=== PATIENT | female | born 1960 | race Caucasian/White ===

== ENCOUNTER 2017-05-16 18:33 | Emergency (ER) | payer OTHER ==
[~2017-05-16 18:33] MED LIST: ALBU8I INH; DEXI60CA3 PO; GABA300C3 PO; HYDR10SO PO; INSU-118 SQ; INSU1.2I SQ; K 10100T PO; LEVO100T4 PO; MAXZ PO; MELO15TA2 PO; NOVOLOGSS SQ; PROZ20CA11 PO; ROPI1TAB PO; TIZA4CAP PO; VICT18IN SQ
[2017-05-16 18:47] VITALS: BP 122/66; PULSE 92; RESP 20; TEMP 98.3; O2SAT 94
--- NOTE | 2017-05-16 18:49 | PD ---
Physical Exam Time Seen by Provider: 18:47 Narrative Pt presents for evaluation of L knee pain. "Wrenched" it two days ago and was ambulating with a walker today when she tripped and fell, landing on the left knee. Was unable to stand following the injury. 05/24 pain. Hurts with any movement. Hx. chronic pain, htn, diabetes, COPD, CAD with MIx3 Data Data Last Documented VS Vital Signs Date Time Temp Pulse Resp B/P (MAP) Pulse Ox O2 Delivery O2 Flow Rate FiO2 05/16/17 18:47 98.3 92 20 122/66 (84) 94 Room Air Orders Orders Knee, Complete (4vws) (05/16/17 ) MDM Medical Record Reviewed: Yes Supervised Visit with ANNABELLA: No Disposition: 07 AGAINST MEDICAL ADVICE Condition: Stable Magaly Sue May 16, 2017 18:49
--- NOTE | 2017-05-16 20:12 | RADRPT ---
EXAM DATE/TIME: 05/16/2017 19:01 [facility] COMPARISON: KNEE LEFT COMPLETE (4VWS), April 10, 2016, 11:27. INDICATIONS : Left knee pain after fall. MEDICAL HISTORY : Multiple sclerosis. SURGICAL HISTORY : None. ENCOUNTER: Initial ACUITY: 1 day PAIN SCORE: 10/10 LOCATION: Left knee. FINDINGS: No acute fracture is seen. The knee joint is normally aligned. There is linear calcification adjacent to the proximal aspect of the medial femoral condyle consistent with Eda-Stieda from prior me dial collateral ligament injury. There is a moderate joint effusion. There is chronic hypertrophic ch yenny of the posterior aspect of the patella. CONCLUSION: Moderate joint effusion. Misael Cervantes MD on May 16, 2017 at 20:09 Board Certified Radiologist. This report was verified electronically.
== END 2017-05-16 20:25 | disposition left against medical advice (07) ==
LOC: NED 18:33
DX: M25.562 Pain in left knee (principal); W01.0XXA Fall on same level from slipping, tripping and stumbling without subsequent striking against object, initial encounter; Y93.01 Activity, walking, marching and hiking; I25.10 Atherosclerotic heart disease of native coronary artery without angina pectoris; I25.2 Old myocardial infarction; I10 Essential (primary) hypertension; E11.9 Type 2 diabetes mellitus without complications; J44.9 Chronic obstructive pulmonary disease, unspecified
CPT/HCPCS: 73564; 99281

== ENCOUNTER 2017-06-13 10:48 | Emergency (ER) | payer OTHER ==
[~2017-06-13] VITALS: Ht 172.7 cm; Wt 90.0 kg
[2017-06-13 10:50] VITALS: BP 152/73; PULSE 90; RESP 16; TEMP 97.8; O2SAT 99
[2017-06-13] MEDS ORDERED: CYCL5TAB PO (11:12)
[2017-06-13] MEDS ORDERED: IBUP-232 PO (11:12)
[2017-06-13] MEDS ORDERED: IBUPROFEN 600 MG TAB PO ONE (11:15)
[2017-06-13] MEDS ORDERED: CYCLOBENZAPRINE HCL 10 MG TAB PO ONE (11:15)
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
== END 2017-06-13 12:05 | disposition home or self-care (01) ==
LOC: NEPD 10:48
DX: S16.1XXA Strain of muscle, fascia and tendon at neck level, initial encounter (principal); R51 Headache; M25.511 Pain in right shoulder; I69.954 Hemiplegia and hemiparesis following unspecified cerebrovascular disease affecting left non-dominant side; I48.91 Unspecified atrial fibrillation; J44.9 Chronic obstructive pulmonary disease, unspecified; E11.9 Type 2 diabetes mellitus without complications; E07.9 Disorder of thyroid, unspecified; V49.50XA Passenger injured in collision with unspecified motor vehicles in traffic accident, initial encounter
CPT/HCPCS: 99283

== ENCOUNTER 2017-10-02 16:43 | Inpatient (IN) | payer MEDICARE ==
[~2017-10-02] VITALS: Ht 170.2 cm; Wt 93.6 kg
[2017-10-02] VITALS (10 sets, daily range): BP systolic 103–148; BP diastolic 72–90; PULSE 70–78; RESP 18–20; TEMP 97.4–97.9; O2SAT 96–99
[~2017-10-02 16:43] MED LIST changes: +CYCL5TAB PO; +IBUP-232 PO
[2017-10-02] MEDS ORDERED: SODIUM CHLOR 0.9% 1000 ML INJ 1,000 ML IV ONE (16:47)
--- NOTE | 2017-10-02 17:06 | PD ---
HPI Chief Complaint: NEURO Time Seen by Provider: 16:47 Travel History International Travel<30 days: No Contact w/Intl Traveler<30days: No Traveled to known affect area: No History of Present Illness HPI Onset of left-sided weakness left facial droop and difficulty speaking since 11: 00.... Unknown as to why it took so many hours for the patient to arrive here in the ER however the patient arrived here around 5:00 or so which is approximately 6 hours after onset of symptoms. Per patient she was attempting to make T when she started to develop the symptoms around 11:00 in the morning, she was at home in the kitchen with her daddy IN living room... Patient has full recollection of everything however still cannot provide me with an explanation as to what took so long between onset of symptoms and calling 911 and arriving at the ER. Only thing she could explain to me is that the symptoms were not as badly at 11 in the morning. Allergies allegedly to IV contrast both for a CAT scan as well as MRI Past medical history of hypothyroidism previous CVA in 2001 NTA previous history of AL in 1987 previous history of atrial fibrillation unknown if she currently still has the history. Previous history of hypercholesterolemia hypertension COPD peptic ulcer disease hiatal hernia, diabetes PFSH Past Medical History Hx Anticoagulant Therapy: No Arthritis: Yes Asthma: Yes Autoimmune Disease: No Blood Disorders: No Heart Rhythm Problems: No Cancer: No Cardiac Catheterization: No Cardiovascular Problems: Yes (A-FIB) High Cholesterol: Yes Chemotherapy: No Chest Pain: Yes Congestive Heart Failure: No COPD: Yes Cerebrovascular Accident: Yes Diabetes: Yes Endocrine: Yes Gastrointestinal Disorders: Yes (had cholesectomy in August 2015 & hernia repair) Genitourinary: No Hiatal Hernia: Yes Hypertension: Yes Immune Disorder: No Implanted Vascular Access Dvce: No Musculoskeletal: Yes (arthritis) Neurologic: Yes (CVA 2001 & history of TIA) Psychiatric: No Reproductive: No Respiratory: Yes Myocardial Infarction: Yes () Sleep Apnea: No Thyroid Disease: Yes Ulcer: Yes Menopausal: Yes : 3 Para: 3 Past Surgical History Coronary Artery Bypass Graft: No Genitourinary Surgery: Yes (PYLONEPHRITIS CYST REMOVED ) Hysterectomy: No Pacemaker: No Tonsillectomy: Yes Other Surgery: Yes (CYST REMOVED IN LOWER SPINE AT AGE 12 AND 19) Social History Alcohol Use: No Tobacco Use: Yes Substance Use: No Allergies-Medications (Allergen,Severity, Reaction): Coded Allergies: Sulfa (Sulfonamide Antibiotics) (Unverified Allergy, Severe, 06/13/17) diatrizoate meglumine (Unverified Allergy, Severe, 06/13/17) gadobenic acid (Unverified Allergy, Severe, 06/13/17) gadodiamide (Unverified Allergy, Severe, 06/13/17) gadoteridol (Unverified Allergy, Severe, 06/13/17) hazelnut (Unverified Allergy, Severe, THROAT SWELLING, 06/13/17) iodixanol (Unverified Allergy, Severe, 06/13/17) iohexol (Unverified Allergy, Severe, 06/13/17) promethazine (Unverified Allergy, Mild, 06/13/17) PANIC ATTACKS Reported Meds & Prescriptions Reported Meds & Active Scripts Active Reported Lortab Liq (Hydrocodone-Acetaminophen Liq) 10-300 Mg/15 Ml Elix 10 Ml PO Q6H PRN Zoloft (Sertraline HCl) 100 Mg Tab 200 Mg PO DAILY Pravastatin 20 Mg Tab 20 Mg PO DAILY Ropinirole 1 Mg Tab 1 Mg PO ONCE Gabapentin 600 Mg Tab 600 Mg PO BID Victoza Inj (Liraglutide Inj) 18 Mg/3 Ml Pen 1.8 Mg SQ DAILY Toujeo Solostar Pen Inj (Insulin Glargine) 300 Unit/Ml Pen 24 Units SQ BID Potassium Chloride ER (Potassium Chloride) 20 Meq Tab 20 Meq PO BID Levothyroxine (Levothyroxine Sodium) 100 Mcg Tab 100 Mcg PO DAILY Review of Systems General / Constitutional: No: Fever Eyes: No: Visual changes HENT: No: Headaches Cardiovascular: No: Chest Pain or Discomfort Respiratory: No: Shortness of Breath Gastrointestinal: No: Abdominal Pain Genitourinary: No: Dysuria Musculoskeletal: No: Pain Skin: No Rash Neurologic: Positive: Focal Abnormalities Psychiatric: No: Depression Endocrine: No: Polydipsia Hematologic/Lymphatic: No: Easy Bruising Physical Exam Narrative GENERAL: SKIN: Warm and dry. HEAD: Atraumatic. Normocephalic. EYES: Pupils equal and round. No scleral icterus. No injection or drainage. ENT: No nasal bleeding or discharge. Mucous membranes pink and moist. NECK: Trachea midline. No JVD. CARDIOVASCULAR: Regular rate and rhythm. RESPIRATORY: No accessory muscle use. Clear to auscultation. Breath sounds equal bilaterally. GASTROINTESTINAL: Abdomen soft, non-tender, nondistended. Hepatic and splenic margins not palpable. MUSCULOSKELETAL: Extremities without clubbing, cyanosis, or edema. No obvious deformities. NEUROLOGICAL: Awake and alert. LEFT FACIAL DROOP, LEFT UE/LLE WEAKNESS 2/5, HOWEVER RIGHT SIDE IS 5/5 STRENGTH. SLURRED speech. PSYCHIATRIC: Appropriate mood and affect; insight and judgment normal. Data Data Last Documented VS Vital Signs Date Time Temp Pulse Resp B/P (MAP) Pulse Ox O2 Delivery O2 Flow Rate FiO2 10/02/17 18:18 83 18 98 Nasal Cannula 2.00 10/02/17 18:05 125/78 (94) 10/02/17 16:53 21 10/02/17 16:50 97.9 Orders Orders Diet Npo (10/02/17 Dinner) Activity Bed Rest (10/02/17 ) Electrocardiogram (10/02/17 ) I-Stat Profile (10/02/17 16:47) Prothrombin Time / Inr (Pt) (10/02/17 16:47) Act Partial Throm Time (Ptt) (10/02/17 16:47) Complete Blood Count With Diff (10/02/17 16:47) Fibrinogen (10/02/17 16:47) Creatine Kinase (Cpk) (10/02/17 16:47) Troponin I (10/02/17 16:47) Ua Includes Microscopic (10/02/17 16:47) Drug Screen, Random Urine (10/02/17 16:47) Type And Screen (10/02/17 16:47) Ct Brain W/O Iv Contrast(Rout) (10/02/17 ) Chest, Single Ap (10/02/17 ) Consult Neurology (10/02/17 ) Blood Glucose (10/02/17 16:47) Ecg Monitoring (10/02/17 16:47) Neuro Checks Q2HX12,Q4H (10/02/17 16:47) Nursing Bedside Swallow Assess .ONCE (10/02/17 16:47) Iv Access Insert/Monitor (10/02/17 16:47) NPO (10/02/17 16:47) Oximetry (10/02/17 16:47) Resp Oxygen Nc Stroke (10/02/17 ) Sodium Chlor 0.9% 1000 Ml Inj (Ns 1000 M (10/02/17 16:47) Cath For Specimen (10/02/17 16:47) (Hub Use Only)Inp Phy Cons/Ref (10/02/17 17:01) Morphine Inj (Morphine Inj) (10/02/17 18:00) Admit Order (Ed Use Only) (10/02/17 18:21) Admit To Inpatient (10/02/17 ) Nih Stroke Scale - Nihss .On admission and discharge (10/02/17 18:19) Neuro Checks Q4H (10/02/17 18:19) Ot Request For Service (10/02/17:) Consult Pt Eval & Treat (10/02/17:) Speech Therapy Consult-Eval/Tx (10/02/17:) Case Management Consult (10/02/17 ) Activity Bed Rest (10/02/17 18:) Nursing Bedside Swallow Assess .ONCE (10/02/17 18:) Scd Bilateral/Knee High BARI.QSHIFT (10/02/17 18:19) Hemoglobin (Hgb) A1c (10/02/17 18:19) Lipid Profile (10/03/17 06:00) Us Carotid Arteries Comp Bilat (10/02/17 ) Mri Brain W/O Contrast (10/02/17 ) Echo 2d Comp With Doppler (10/02/17 ) Resp Oxygen Nc Stroke (10/02/17 ) ^ Hold Medication (10/02/17 18:) Sodium Chloride 0.9% Flush (Ns Flush) (10/02/17 21:00) Sodium Chloride 0.9% Flush (Ns Flush) (10/02/17 18:30) Sodium Chlor 0.9% 1000 Ml Inj (Ns 1000 M (10/02/17 18:19) Enalaprilat Inj (Vasotec Inj) (10/02/17 18:30) Aspirin Chew (Aspirin Chew) (10/03/17 09:00) Pravastatin (Pravachol) (10/02/17 21:00) Bedside Glucose BARI.CSUGAR (10/02/17 18:19) ^ Discontinue Insulin Orders (10/02/17 18:19) Insulin Aspart Supplemtl Scale (Novolog (10/02/17 21:00) Dextrose 50% In Brigid (Vial) Inj (D50w (Vi (10/02/17 18:30) Glucagon Inj (Glucagon Inj) (10/02/17 18:30) Blocker Polishing / Telemetry BARI.Q8H (10/02/17 18:19) Consult Stroke Navigator (10/02/17 ) Heparin Inj (Heparin Inj) (10/02/17 18:30) Labs Laboratory Tests Test 10/02/17 16:57 10/02/17 17:16 White Blood Count 14.0 TH/MM3 Red Blood Count 5.07 MIL/MM3 Hemoglobin 15.8 GM/DL Bedside Hemoglobin 15.3 G/DL Hematocrit 45.0 % Bedside Hematocrit 45.0 % Mean Corpuscular Volume 88.7 FL Mean Corpuscular Hemoglobin 31.2 PG Mean Corpuscular Hemoglobin Concent 35.1 % Red Cell Distribution Width 15.8 % Platelet Count 201 TH/MM3 Mean Platelet Volume 8.4 FL Neutrophils (%) (Auto) 62.5 % Lymphocytes (%) (Auto) 28.9 % Monocytes (%) (Auto) 5.4 % Eosinophils (%) (Auto) 2.4 % Basophils (%) (Auto) 0.8 % Neutrophils # (Auto) 8.7 TH/MM3 Lymphocytes # (Auto) 4.1 TH/MM3 Monocytes # (Auto) 0.8 TH/MM3 Eosinophils # (Auto) 0.3 TH/MM3 Basophils # (Auto) 0.1 TH/MM3 CBC Comment AUTO DIFF Differential Total Cells Counted 100 Neutrophils % (Manual) 57 % Band Neutrophils % 7 % Lymphocytes % 28 % Monocytes % 3 % Eosinophils % 5 % Neutrophils # (Manual) 9.0 TH/MM3 Differential Comment FINAL DIFF MANUAL Platelet Estimate NORMAL Platelet Morphology Comment NORMAL Red Cell Morphology Comment NORMAL Prothrombin Time 10.0 SEC Prothromb Time International Ratio 1.0 RATIO Activated Partial Thromboplast Time 23.8 SEC Fibrinogen 392 mg/dL Bedside Sodium 140 MMOL/L Bedside Potassium 4.1 MMOL/L Bedside Chloride 106 MMOL/L Bedside Blood Urea Nitrogen 24 MG/DL Bedside Creatinine 1.5 MG/DL Bedside Glucose 113 MG/DL Total Creatine Kinase 89 U/L Troponin I LESS THAN 0.02 NG/ML Urine Color YELLOW Urine Turbidity CLEAR Urine pH 5.5 Urine Specific [place] 1.023 Urine Protein NEG mg/dL Urine Glucose (UA) NEG mg/dL Urine Ketones NEG mg/dL Urine Occult Blood NEG Urine Nitrite NEG Urine Bilirubin NEG Urine Urobilinogen 2.0 MG/DL Urine Leukocyte Esterase NEG Urine RBC 1 /hpf Urine WBC 1 /hpf Urine Squamous Epithelial Cells 2 /hpf Urine Mucus FEW /lpf Urine Opiates Screen NEG Urine Barbiturates Screen POS Urine Amphetamines Screen NEG Urine Benzodiazepines Screen NEG Urine Cocaine Screen NEG Urine Cannabinoids Screen NEG MDM Medical Decision Making Medical Screen Exam Complete: Yes Emergency Medical Condition: Yes Medical Record Reviewed: Yes Interpretation(s) EKG: Normal sinus rhythm, 70 bpm, normal intervals, P mitral alley, no STEMI pattern noted. However the patient does have some inverted T waves on V1 V2 V3 and V4 Pulse ox: Excellent PLETH wave, pulse ox of 97% on room air which is within normal limits Differential Diagnosis Intracranial hemorrhage versus ischemic CVA versus hypoglycemia versus electrolyte abnormalities versus sepsis Narrative Course NIH 10, GCS 15... Patient is outside of the window for TPA since patient arrived 6 hours after onset of symptoms. This was discussed with Dr. Mario Tobar neurologist who agrees. Chest x-ray is negative for any pneumonia or pleural effusion or pneumothorax. CT head was read as negative for any intracranial hemorrhage per radiologist. Critical Care Narrative CRITICAL CARE NOTE: With evaluation of the patient, labs, EKG, receipt of radiologic studies, administration of medications, reevaluation the patient and discussion of the patient with the admitting physicians, the total critical care time was [60] minutes. Time to perform other separately billable procedures was not included in the critical care time. Diagnosis Primary Impression: Acute CVA with left-sided deficits Admitting Information Admitting Physician Requests: Admit Bairon Crouch MD Oct 02, 2017 17:06
--- NOTE | 2017-10-02 17:08 | RADRPT ---
EXAM DATE/TIME: 10/02/2017 16:58 [facility] COMPARISON: No previous studies available for comparison. INDICATIONS : Stroke alert, left sided weakness. RADIATION DOSE: 54.29 CTDIvol (mGy) This report was called by Dr. Yates to <Dr. Crouch> at <1704>> MEDICAL HISTORY : Non-responsive. SURGICAL HISTORY : Non-responsive. ENCOUNTER: Initial ACUITY: 1 day PAIN SCALE: Non-responsive LOCATION: Bilateral head TECHNIQUE: Multiple contiguous axial images were obtained of the head. Using automated exposure control and adj ustment of the mA and/or kV according to patient size, radiation dose was kept as low as reasonably a chievable to obtain optimal diagnostic quality images. DICOM format image data is available electro nically for review and comparison. FINDINGS: CEREBRUM: The ventricles are normal for age. No evidence of midline shift, mass lesion, hemorrhage or acute in farction. No extra-axial fluid collections are seen. POSTERIOR FOSSA: The cerebellum and brainstem are intact. The 4th ventricle is midline. The cerebellopontine angle i s unremarkable. EXTRACRANIAL: The visualized portion of the orbits is intact. SKULL: The calvaria is intact. No evidence of skull fracture. CONCLUSION: Normal examination. Júnior Yates MD on October 02, 2017 at 17:03 Board Certified Radiologist. This report was verified electronically.
--- NOTE | 2017-10-02 17:15 | RADRPT ---
EXAM DATE/TIME: 10/02/2017 17:08 [facility] COMPARISON: No previous studies available for comparison. INDICATIONS : Stroke alert. MEDICAL HISTORY : None. SURGICAL HISTORY : None. ENCOUNTER: Initial ACUITY: 1 day PAIN SCORE: 0/10 LOCATION: Bilateral chest FINDINGS: A single view of the chest demonstrates the lungs to be symmetrically aerated without evidence of mas s, infiltrate or effusion. The cardiomediastinal contours are unremarkable. Osseous structures are intact. CONCLUSION: Normal examination. Júnior Yates MD on October 02, 2017 at 17:14 Board Certified Radiologist. This report was verified electronically.
[2017-10-02 17:24] LABS: AUTOMATED NEUTROPHIL # 8.7 TH/MM3 (1.8-7.7); BASOPHIL # 0.1 TH/MM3 (0-0.2); BASOPHIL % 0.8 % (0.0-2.0); EOSINOPHIL # 0.3 TH/MM3 (0-0.4); EOSINOPHIL % 2.4 % (0.0-4.0); HEMOGLOBIN 15.8 GM/DL (11.6-15.3); LYMPH % 28.9 % (9.0-44.0); LYMPHOCYTE # 4.1 TH/MM3 (1.0-4.8); MEAN CELL VOLUME 88.7 FL (80.0-100.0); MEAN CORPUSCULAR HEMOGLOBIN 31.2 PG (27.0-34.0); MEAN CORPUSCULAR HGB CONC 35.1 % (32.0-36.0); MEAN PLATELET VOLUME 8.4 FL (7.0-11.0); MONO % 5.4 % (0.0-8.0); MONOCYTE # 0.8 TH/MM3 (0-0.9); NEUT % 62.5 % (16.0-70.0); PLATELET COUNT 201 TH/MM3 (150-450); RED BLOOD COUNT 5.07 MIL/MM3 (4.00-5.30); RED CELL DISTRIBUTION WIDTH 15.8 % (11.6-17.2)
[2017-10-02 17:52] LABS: BANDS 7 % (0-6); LYMPHOCYTES 28 % (9-44); MONOCYTES 3 % (0-8); POLYS (SEG NEUTROPHILS) 57 % (16-70)
[2017-10-02] MEDS ORDERED: MORPHINE SULFATE 2 MG/ML INJ IV PUSH ONE (18:00)
[2017-10-02 18:05] LABS: TROPONIN I LESS THAN 0.02 NG/ML (0.02-0.05)
[2017-10-02 18:14] LABS: BILIRUBIN, URINE NEG (NEG); BLOOD, URINE NEG (NEG); GLUCOSE,URINE NEG (NEG); KETONE, URINE NEG (NEG); MUCUS URINE FEW /lpf (OCC); NITRITE,URINE NEG (NEG); PH, URINE 5.5 (5.0-8.5); SQUAMOUS EPITHELIAL CELL URINE 2 /hpf (0-5); URINE COLOR YELLOW (YELLW/STRAW); URINE LEUKOCYTE ESTERASE NEG (NEG)
[2017-10-02] MEDS: SODIUM CHLOR 0.9% 1000 ML INJ 1,000 ML IV SCH (18:19)
[2017-10-02] MEDS ORDERED: ENALAPRILAT 1.25 MG/ML VIAL IV PUSH PRN (18:30)
[2017-10-02] MEDS ORDERED: SODIUM CHLORIDE 0.9% FLUSH 10 ML FLUSH IV FLUSH PRN (18:30)
[2017-10-02] MEDS ORDERED: DEXTROSE 50% IN WATER 50 ML VIAL(D50) IV PUSH PRN (18:30)
[2017-10-02] MEDS ORDERED: GLUCAGON 1 MG/ML VIAL OTHER PRN (18:30)
[2017-10-02] MEDS: HEPARIN SODIUM - SQ 10,000 UNITS/ML VIAL SQ SCH (18:34)
[2017-10-02] MEDS ORDERED: VICT18IN SQ (19:04)
[2017-10-02] MEDS ORDERED: LEVO100T5 PO (19:04)
[2017-10-02] MEDS ORDERED: POTA-163 PO (19:04)
[2017-10-02] MEDS ORDERED: GABA600T PO (19:04)
[2017-10-02] MEDS ORDERED: INSU1.2I SQ (19:04)
[2017-10-02] MEDS ORDERED: ROPI1TAB PO (19:07)
[2017-10-02] MEDS ORDERED: HYDR1ELX PO (19:07)
[2017-10-02] MEDS ORDERED: PRAV20TA2 PO (19:07)
[2017-10-02] MEDS ORDERED: ZOLO100T PO (19:07)
--- NOTE | 2017-10-02 20:12 | RADRPT ---
EXAM DATE/TIME: 10/02/2017 19:07 [facility] COMPARISON: CT BRAIN W/O CONTRAST, October 02, 2017, 16:58. INDICATIONS : Slurred speech. Resolved. MEDICAL HISTORY : Hypertension. Diabetes mellitus type 2. Multiple sclerosis. SURGICAL HISTORY : Cholecystectomy. Tonsillectomy. ENCOUNTER: Initial ACUITY: 1 day PAIN SCORE: 0/10 LOCATION: cranial TECHNIQUE: Multiplanar, multisequence MRI of the brain was performed without contrast. FINDINGS: CEREBRUM: Ventricles are normal in size. No evidence of midline shift, mass lesion, hemorrhage or acute infarc tion. No extraaxial fluid collections are seen. The pituitary gland and suprasellar cistern are nor mal in configuration. WHITE MATTER: There is moderate severity periventricular and subcortical white matter signal change bilaterally. POSTERIOR FOSSA: The cerebellum and brainstem demonstrate no acute finding. The 4th ventricle is midline. The cerebel lopontine angle is unremarkable. The cerebellar tonsils are normal in position. DIFFUSION IMAGING: No focal areas of restricted diffusion are seen. No evidence of acute infarction. EXTRACRANIAL: The visualized portions of the orbits and paranasal sinuses are unremarkable. CONCLUSION: 1. There are no findings to indicate recent ischemia. Overall, no acute finding is identified. 2. Moderate severity periventricular and subcortical white matter signal change bilaterally. This cou ld represent chronic microvascular ischemic change and the severity is greater than typically seen in a patient this age. Misael Singletary MD on October 02, 2017 at 20:07 Board Certified Radiologist. This report was verified electronically.
--- NOTE | 2017-10-02 20:28 | HHI.HP ---
[facility] Misael Gómez, Admission Diagnosis ACUTE CVA Diagnoses: Travel History International Travel<30 Days: No Contact w/Intl Traveler <30 Da: No Traveled to Known Affected Are: No History of Present Illness 56-year-old female with a past medical history significant for multiple TIAs, insulin-dependent diabetes mellitus, hypertension, hyperlipidemia and multiple sclerosis presents to the emergency department for evaluation of possible stroke. The patient reports that last night she had a stabbing headache in the occipital region. She reports she did not think anything of it and fell asleep however when she awoke this morning she felt as though she "did not feel right. " She reports left sided facial numbness and left arm and leg weakness. She states the weakness and numbness progressed throughout the day until 2:00 this afternoon when she had an episode of confusion and slurred speech while making tea. Her family called EMS and she was brought to the emergency department for further evaluation. Review of Systems Except as stated in HPI: all other systems reviewed are Neg Denies fever or chills Denies blurry vision, otorrhea, rhinorrhea Denies sore throat and cough No chest pain, palpitations No shortness of breath or wheezing No abdominal pain Denies constipation/diarrhea/nausea/vomiting Denies muscle pain Positive left-sided weakness No rashes Past Family Social History Past Medical History History of multiple TIAs Diabetes mellitus Hypertension Hyperlipidemia MS Past Surgical History Tonsillectomy Cholecystectomy Left ankle surgery Right knee arthroscopically Reported Medications Reported Meds & Active Scripts Active Reported Lortab Liq (Hydrocodone-Acetaminophen Liq) 10-300 Mg/15 Ml Elix 10 Ml PO Q6H PRN Zoloft (Sertraline HCl) 100 Mg Tab 200 Mg PO DAILY Pravastatin 20 Mg Tab 20 Mg PO DAILY Ropinirole 1 Mg Tab 1 Mg PO ONCE Gabapentin 600 Mg Tab 600 Mg PO BID Victoza Inj (Liraglutide Inj) 18 Mg/3 Ml Pen 1.8 Mg SQ DAILY Toutato Solostar Pen Inj (Insulin Glargine) 300 Unit/Ml Pen 24 Units SQ BID Potassium Chloride ER (Potassium Chloride) 20 Meq Tab 20 Meq PO BID Levothyroxine (Levothyroxine Sodium) 100 Mcg Tab 100 Mcg PO DAILY Allergies: Coded Allergies: Sulfa (Sulfonamide Antibiotics) (Unverified Allergy, Severe, 06/13/17) diatrizoate meglumine (Unverified Allergy, Severe, 06/13/17) gadobenic acid (Unverified Allergy, Severe, 06/13/17) gadodiamide (Unverified Allergy, Severe, 06/13/17) gadoteridol (Unverified Allergy, Severe, 06/13/17) hazelnut (Unverified Allergy, Severe, THROAT SWELLING, 06/13/17) iodixanol (Unverified Allergy, Severe, 06/13/17) iohexol (Unverified Allergy, Severe, 06/13/17) promethazine (Unverified Allergy, Mild, 06/13/17) PANIC ATTACKS Family History Father with diabetes mellitus Mother with CAD Physical Exam Vital Signs Vital Signs Date Time Temp Pulse Resp B/P (MAP) Pulse Ox O2 Delivery O2 Flow Rate FiO2 10/02/17 18:18 83 18 98 Nasal Cannula 2.00 10/02/17 18:05 70 18 125/78 (94) 97 Nasal Cannula 2.00 10/02/17 17:30 18 96 Room Air 10/02/17 17:19 74 18 117/89 (98) 97 Room Air 10/02/17 16:53 97 21 10/02/17 16:50 97.9 76 18 148/90 (109) 98 Room Air Physical Exam GENERAL: Obese, female lying in bed SKIN: No rashes, ecchymoses or lesions. Cool and dry. HEAD: Atraumatic. Normocephalic. No temporal or scalp tenderness. EYES: Pupils equal round and reactive. Extraocular motions intact. No scleral icterus. No injection or drainage. ENT: Nose without bleeding, purulent drainage or septal hematoma. Throat without erythema, tonsillar hypertrophy or exudate. Uvula midline. Airway patent. NECK: Trachea midline. No JVD or lymphadenopathy. Supple, nontender, no meningeal signs. CARDIOVASCULAR: Regular rate and rhythm without murmurs, gallops, or rubs. RESPIRATORY: Clear to auscultation. Breath sounds equal bilaterally. No wheezes , rales, or rhonchi. GASTROINTESTINAL: Abdomen soft, non-tender, nondistended. No hepato-splenomegaly , or palpable masses. No guarding. MUSCULOSKELETAL: Extremities without clubbing, cyanosis, or edema. No joint tenderness, effusion, or edema noted. No calf tenderness. NEUROLOGICAL: Awake and alert. Cranial nerves II through XII intact. Normal speech. 3/5 left hand state auditor strength. 5/5 strength throughout remainder of exam. No facial droop. Laboratory Laboratory Tests Test 10/02/17 16:57 10/02/17 17:16 White Blood Count 14.0 Red Blood Count 5.07 Hemoglobin 15.8 Bedside Hemoglobin 15.3 Hematocrit 45.0 Bedside Hematocrit 45.0 Mean Corpuscular Volume 88.7 Mean Corpuscular Hemoglobin 31.2 Mean Corpuscular Hemoglobin Concent 35.1 Red Cell Distribution Width 15.8 Platelet Count 201 Mean Platelet Volume 8.4 Neutrophils (%) (Auto) 62.5 Lymphocytes (%) (Auto) 28.9 Monocytes (%) (Auto) 5.4 Eosinophils (%) (Auto) 2.4 Basophils (%) (Auto) 0.8 Neutrophils # (Auto) 8.7 Lymphocytes # (Auto) 4.1 Monocytes # (Auto) 0.8 Eosinophils # (Auto) 0.3 Basophils # (Auto) 0.1 CBC Comment AUTO DIFF Differential Total Cells Counted 100 Neutrophils % (Manual) 57 Band Neutrophils % 7 Lymphocytes % 28 Monocytes % 3 Eosinophils % 5 Neutrophils # (Manual) 9.0 Differential Comment FINAL DIFF MANUAL Platelet Estimate NORMAL Platelet Morphology Comment NORMAL Red Cell Morphology Comment NORMAL Prothrombin Time 10.0 Prothromb Time International Ratio 1.0 Activated Partial Thromboplast Time 23.8 Fibrinogen 392 Bedside Sodium 140 Bedside Potassium 4.1 Bedside Chloride 106 Bedside Blood Urea Nitrogen 24 Bedside Creatinine 1.5 Bedside Glucose 113 Total Creatine Kinase 89 Troponin I LESS THAN 0.02 Urine Color YELLOW Urine Turbidity CLEAR Urine pH 5.5 Urine Specific [place] 1.023 Urine Protein NEG Urine Glucose (UA) NEG Urine Ketones NEG Urine Occult Blood NEG Urine Nitrite NEG Urine Bilirubin NEG Urine Urobilinogen 2.0 Urine Leukocyte Esterase NEG Urine RBC 1 Urine WBC 1 Urine Squamous Epithelial Cells 2 Urine Mucus FEW Urine Opiates Screen NEG Urine Barbiturates Screen POS Urine Amphetamines Screen NEG Urine Benzodiazepines Screen NEG Urine Cocaine Screen NEG Urine Cannabinoids Screen NEG Result Diagram: 10/02/17 5554 Caprini VTE Risk Assessment Caprini VTE Risk Assessment: No/Low Risk (score <= 1) Caprini Risk Assessment Model Point Value = 1 Point Value = 2 Point Value = 3 Point Value = 5 Age 41-60 Minor surgery BMI > 25 kg/m2 Swollen legs Varicose veins or History of unexplained or recurrent spontaneous Oral contraceptives or hormone replacement Sepsis (< 1 month) Serious lung disease, including pneumonia (< 1 month) Abnormal pulmonary function Acute myocardial infarction Congestive heart failure (< 1 month) History of inflammatory bowel disease Medical patient at bed rest Age 61-74 Arthroscopic surgery Major open surgery (> 45 min) Laparoscopic surgery (> 45 min) Malignancy Confined to bed (> 72 hours) Immobilizing plaster cast Central venous access Age >= 75 History of VTE Family history of VTE Factor V Leiden Prothrombin [id number] Lupus anticoagulant Anticardiolipin antibodies Elevated serum homocysteine Heparin-induced thrombocytopenia Other congenital or acquired thrombophilia Stroke (< 1 month) Elective arthroplasty Hip, pelvis, or leg fracture Acute spinal cord injury (< 1 month) Prophylaxis Regimen Total Risk Factor Score Risk Level Prophylaxis Regimen 0-1 Low Early ambulation 2 Moderate Order ONE of the following: *Sequential Compression Device (SCD) *Heparin 5000 units SQ BID 3-4 Higher Order ONE of the following medications: *Heparin 5000 units SQ TID *Enoxaparin/Lovenox 40 mg SQ daily (WT < 150 kg, CrCl > 30 mL/min) *Enoxaparin/Lovenox 30 mg SQ daily (WT < 150 kg, CrCl > 10-29 mL/min) *Enoxaparin/Lovenox 30 mg SQ BID (WT < 150 kg, CrCl > 30 mL/min) AND/OR *Sequential Compression Device (SCD) 5 or more Highest Order ONE of the following medications: *Heparin 5000 units SQ TID (Preferred with Epidurals) *Enoxaparin/Lovenox 40 mg SQ daily (WT < 150 kg, CrCl > 30 mL/min) *Enoxaparin/Lovenox 30 mg SQ daily (WT < 150 kg, CrCl > 10-29 mL/min) *Enoxaparin/Lovenox 30 mg SQ BID (WT < 150 kg, CrCl > 30 mL/min) AND *Sequential Compression Device (SCD) Assessment and Plan Assessment and Plan Assessment/plan: 1. TIA Head CT negative for acute intracranial process MRI/carotid ultrasound pending Neurology consulted, appreciate recommendations 2. Insulin-dependent diabetes mellitus SSI Monitor blood glucose 3. Hypertension/hyperlipidemia Continue home medications 4. Chronic pain Patient sees Dr. Fong Continue home medications 5. ED IV fluid hydration Monitor renal function FEN NPO Electrolytes: Monitor and replete when necessary NS at 70 cc/hr Vero Garcia MD Oct 02, 2017 20:28
[2017-10-02] MEDS: INSULIN ASPART SUPPLEMENTAL SCALE SQ SCH (20:37)
[2017-10-02] MEDS: GABAPENTIN 300 MG CAP PO SCH (20:57)
[2017-10-02] MEDS: PRAVASTATIN SOD 40 MG TAB PO SCH (20:58)
[2017-10-02] MEDS: ACETAMINOPHEN 325MG/HYDROcodone 7.5MG/15ML UDC PO PRN (20:58)
[2017-10-02] MEDS: SODIUM CHLORIDE 0.9% FLUSH 10 ML FLUSH IV FLUSH SCH (21:00)
--- NOTE | 2017-10-02 22:04 | RADRPT ---
EXAM DATE/TIME: 10/02/2017 21:03 [facility] COMPARISON: No previous studies available for comparison. INDICATIONS : Cerebrovascular accident. MEDICAL HISTORY : Stroke. Myocardial infarction. Hypercholesterolemia. Thyroid disease. Atrial fibrillation. Chest pain . COPD. Asthma. Wheezing. Ulcer. Hiatal hernia. Arthritis. Diabetes. Claustrophobia. SURGICAL HISTORY : Tonsillectomy. Cyst removed from lower spine. ENCOUNTER: Initial ACUITY: 4-6 days PAIN SCORE: 2/10 LOCATION: Bilateral neck PEAK SYSTOLIC VELOCITIES (cm/sec): ICA/CCA RATIO: Right: 0.8 Left: 0.9 ICA: Right: 63.1 Left: 63.3 CCA: Right: 76.0 Left: 72.0 ECA: Right: 68.3 Left: 70.7 VERTEBRAL: Right: 31.8 antegrade Left: 33.7 antegrade Elevated flow velocities and ICA/CCA ratios have been found to correlate with increased degrees of vessel stenosis, calculated as percentage of diameter relative to a normal segment of distal ICA/CCA FINDINGS: RIGHT CAROTID: No significant stenosis is visualized. There is minimal noncalcified plaque in the carotid bulb. The waveforms are within normal limits. LEFT CAROTID: No significant stenosis is visualized. No significant atherosclerotic plaque is visualized. The wave forms are within normal limits. VERTEBRAL ARTERIES: Antegrade flow is seen in both vertebral arteries. MISCELLANEOUS: None. CONCLUSION: 1. No significant atherosclerotic disease or stenosis is present within either internal carotid arter y. 2. There is antegrade flow in both vertebral arteries. Misael Singletary MD on October 02, 2017 at 22:01 Board Certified Radiologist. This report was verified electronically.
[2017-10-03] VITALS (7 sets, daily range): BP systolic 94–117; BP diastolic 60–74; PULSE 60–87; RESP 14–18; TEMP 97.6–98.1; O2SAT 94–98
[2017-10-03 04:38] LABS: CHOLESTEROL/ HDL RATIO 5.25 RATIO; HDL CHOLESTEROL 28.9 MG/DL (40.0-60.0)
[2017-10-03] MEDS: HEPARIN SODIUM - SQ 10,000 UNITS/ML VIAL SQ SCH ×2 (06:18→18:16)
[2017-10-03] MEDS: LEVOTHYROXINE SODIUM 100 MCG TAB PO SCH (08:48)
[2017-10-03] MEDS: INSULIN ASPART SUPPLEMENTAL SCALE SQ SCH ×5 (08:48→21:37)
[2017-10-03] MEDS ORDERED: INFLUENZA VIRUS VACCINE (QUADRIVALENT) 0.5 ML SYR IM ONE (10:00)
[2017-10-03] MEDS ORDERED: PNEUMOCOCCAL POLYVALENT INJ 25 MCG/0.5 ML SYR IM ONE (10:00)
[2017-10-03] MEDS: SERTRALINE HCL 100 MG TAB PO SCH (10:08)
[2017-10-03] MEDS: ASPIRIN 81 MG CHEW TAB PO SCH (10:08)
[2017-10-03] MEDS: SODIUM CHLOR 0.9% 1000 ML INJ 1,000 ML IV SCH (10:09)
[2017-10-03] MEDS: SODIUM CHLORIDE 0.9% FLUSH 10 ML FLUSH IV FLUSH SCH ×2 (10:09→21:30)
[2017-10-03] MEDS: GABAPENTIN 300 MG CAP PO SCH ×2 (10:09→21:30)
--- NOTE | 2017-10-03 13:44 | HHI.PR ---
Subjective Remarks Patient says that left-sided weakness has improved, she reports chronic left- sided weakness secondary to stroke over 10 years ago. She does feel left-sided weakness is still slightly worse than baseline. Denies any chest pain or shortness of breath. Objective Vital Signs Date Time Temp Pulse Resp B/P (MAP) Pulse Ox O2 Delivery O2 Flow Rate FiO2 10/03/17 12:43 97.8 60 18 103/62 (76) 94 10/03/17 08:19 97.6 67 16 94/61 (72) 97 10/03/17 04:49 72 10/03/17 04:35 97.7 63 16 106/62 (77) 98 10/02/17 23:50 77 10/02/17 23:38 97.4 76 20 103/72 (82) 97 10/02/17 22:15 97.7 78 20 113/73 (86) 96 10/02/17 22:10 22 10/02/17 22:02 10/02/17 20:20 99 Nasal Cannula 2.00 10/02/17 20:17 78 18 121/75 (90) 99 Nasal Cannula 2.00 10/02/17 18:18 83 18 98 Nasal Cannula 2.00 10/02/17 18:05 70 18 125/78 (94) 97 Nasal Cannula 2.00 10/02/17 17:30 18 96 Room Air 10/02/17 17:19 74 18 117/89 (98) 97 Room Air 10/02/17 16:53 97 21 10/02/17 16:50 97.9 76 18 148/90 (109) 98 Room Air Result Diagram: 10/02/17 0441 Objective Remarks GENERAL: Patient sitting up in bed. Appears comfortable. Alert and oriented 3. SKIN: Warm and dry. HEAD: Normocephalic. EYES: No scleral icterus. No injection or drainage. NECK: Supple, trachea midline. No JVD. CARDIOVASCULAR: Regular rate and rhythm without murmurs, gallops, or rubs. RESPIRATORY: Breath sounds equal bilaterally. No accessory muscle use. GASTROINTESTINAL: Abdomen soft, non-tender, nondistended. MUSCULOSKELETAL: No cyanosis, or edema. 4 out of 5 strength on the left upper extremity, 5 out of 5 strength on the right. BACK: Nontender without obvious deformity. No CVA tenderness. A/P Assessment and Plan // TIA Head CT negative for acute intracranial process MRI/carotid ultrasound pending Neurology consulted, appreciate recommendations = No acute changes on MRI. Ultrasound negative for significant stenosis. patient reporting left sided beyond baseline. Follow-up neurology recommendations. /// Insulin-dependent diabetes mellitus SSI Monitor blood glucose = Glucose acceptable. Continue to monitor. //Urine positive for barbiturates. -Recommend patient avoid any outside medications or any medications off of med list. // Hypertension/hyperlipidemia Continue home medications // Chronic pain Patient sees Dr. Fong Continue home medications = Hold home medications, suspect overdose // ED IV fluid hydration Monitor renal function FEN NPO Electrolytes: Monitor and replete when necessary NS at 70 cc/hr Discharge Planning pending Neurology clearance. Sandip Lizama MD Oct 03, 2017 13:44
[2017-10-03 16:07] LABS: BICARBONATE 27.1 MEQ/L (21.0-32.0); CALCIUM 8.5 MG/DL (8.5-10.1); CREATININE 1.07 MG/DL (0.50-1.00)
[2017-10-03 17:00] LABS: HEMOGLOBIN A1C 7.2 % (4.3-6.0)
[2017-10-03] MEDS ORDERED: SODIUM CHLORIDE 0.9% FLUSH 10 ML FLUSH IV FLUSH PRN (20:45)
[2017-10-03] MEDS ORDERED: DEXTROSE 50% IN WATER 50 ML VIAL(D50) IV PUSH PRN (20:45)
[2017-10-03] MEDS ORDERED: GLUCAGON 1 MG/ML VIAL OTHER PRN (20:45)
[2017-10-03] MEDS ORDERED: SODIUM CHLORIDE 0.9% FLUSH 10 ML FLUSH IV FLUSH SCH (21:00)
[2017-10-03] MEDS: CLOPIDOGREL 75 MG TAB PO SCH (21:30)
[2017-10-03] MEDS: PRAVASTATIN SOD 40 MG TAB PO SCH (21:30)
--- NOTE | 2017-10-03 23:04 | EKG ---
Date Performed: 10/02/2017 Time Performed: 18:01:58 PTAGE: 56 years EKG: Sinus rhythm POSSIBLE LEFT ATRIAL ENLARGEMENT BORDERLINE LEFT AXIS DEVIATION POSSIBLE RIGHT VENTRICULAR CONDUCTIO N DELAY NONSPECIFIC ST & T-WAVE ABNORMALITY BORDERLINE ECG PREVIOUS TRACING : 01/12/2016 05.56 DOCTOR: Nimco Hennessy Interpretating Date/Time 10/03/2017 22:56:06
[2017-10-04] VITALS (9 sets, daily range): BP systolic 108–133; BP diastolic 64–69; PULSE 67–78; RESP 16–21; TEMP 97.5–98.4; O2SAT 96–98
[2017-10-04] MEDS: SODIUM CHLOR 0.9% 1000 ML INJ 1,000 ML IV SCH ×2 (00:41→15:17)
[2017-10-04] MEDS: HEPARIN SODIUM - SQ 10,000 UNITS/ML VIAL SQ SCH ×2 (06:04→18:50)
[2017-10-04] MEDS: INSULIN ASPART SUPPLEMENTAL SCALE SQ SCH ×4 (08:00→20:34)
--- NOTE | 2017-10-04 08:00 | MB ---
cc: ROSARIO HESS M.D. DATE OF CONSULTATION 10/03/2017 REASON FOR CONSULTATION Stroke Alert. HISTORY OF PRESENT ILLNESS Ms. Angulo is a 56-year-old woman who presented to the hospital yesterday with left facial weakness and difficulty speaking. The symptoms began at around 11 o'clock in the morning. She came to the ER around 5 in the afternoon. She at that time was noted to have left facial droop and difficulty with her speech. Because of the time frame she was outside the window for t-PA. She has an ALLERGY TO CONTRAST and was unable to receive a CT angiogram. Her symptoms she states resolved and are now back to normal. She has a history of migraine headaches but did not have a headache yesterday. The patient does have a history of multiple TIAs. PAST MEDICAL HISTORY 1. History of atrial fibrillation in the past in 1987. 2. History of insulin-dependent diabetes mellitus. 3. Hypertension. 4. Hyperlipidemia. 5. History of multiple sclerosis. PAST SURGICAL HISTORY 1. Remarkable for tonsillectomy. 2. Cholecystectomy. 3. Left ankle surgery. MEDICATIONS AT HOME 1. Aspirin 325 mg daily. 2. Lortab. 3. Zoloft. 4. Pravastatin. 5. Ropiderol. 6. Gabapentin. 7. Victoza. 8. Insulin. 9. Potassium chloride. 10. Levothyroxine. ALLERGIES SULFA. GADOBENIC ACID. GADODIAMIDE. GADOTERIDOL. KERRI NUT. IODIXANOL. IOHEXOL. PROMETHAZINE IODINE. NEUROLOGIC EXAMINATION Blood pressure was 117/74, pulse 72, respirations 18, temperature 98 degrees. Higher cortical functions at this time are normal. Cranial nerves are intact. Motor exam shows normal strength and tone of all groups. There is no drift. Reflexes symmetric. IMAGING STUDIES CT scan of the brain is normal. MRI of the brain - No evidence of stroke. There are numerous subcortical white matter signal changes consistent with her multiple sclerosis. Carotid ultrasound - No significant stenosis. LABORATORY DATA White count 14,000, hemoglobin 15.8, hematocrit 45%, platelet count 201,000. Sodium is 140, potassium 4.1, chloride 106, BUN is 24, creatinine 1.07, CO2 27, glucose 113, cholesterol 152, LDL 83. Tox screen positive barbiturates. Urinalysis - the pH is 5.5, specific gravity 1.023. IMPRESSION Transient left-sided weakness, possible TIA versus multiple sclerosis versus hemiplegic migraine. RECOMMENDATIONS 1. I would recommend continue to monitor cardiac telemetry to rule out A-fib, also echocardiogram. 2. We will also consider getting transesophageal echocardiogram to rule out PFO. 3. Also recommend a hypercoagulable workup. 4. For the possibility of TIA, would add Plavix. MD VARSHA Barbour/JOAQUIN /8:33 PM /8:17 AM
--- NOTE | 2017-10-04 08:06 | HHI.PR ---
Subjective Remarks Follow up TIA. Patient reports that left-sided weakness has resolved. Denies chest pain, dyspnea, nausea, vomiting, headache, vision changes. States that she feels back to her normal self. She states that her back is hurting a lot. Objective Vitals Vital Signs Date Time Temp Pulse Resp B/P (MAP) Pulse Ox O2 Delivery O2 Flow Rate FiO2 10/04/17 05:57 21 10/04/17 04:17 98.0 72 18 121/64 (83) 96 10/04/17 04:05 73 10/04/17 01:39 98.4 78 18 133/65 (87) 98 10/04/17 00:03 67 10/03/17 21:25 98.1 70 14 113/60 (77) 94 10/03/17 20:00 87 10/03/17 16:50 98.0 72 18 117/74 (88) 95 10/03/17 12:43 97.8 60 18 103/62 (76) 94 10/03/17 08:19 97.6 67 16 94/61 (72) 97 Result Diagram: 10/02/17 1657 10/03/17 1432 Imaging Last Impressions Head CT 10/02/17 0000 Signed Impressions: Service Date/Time: Monday, October 02, 2017 16:58 - CONCLUSION: Normal examination. Júnior Yates MD Chest X-Ray 10/02/17 0000 Signed Impressions: Service Date/Time: Monday, October 02, 2017 17:08 - CONCLUSION: Normal examination. Júnior Yates MD Carotid Artery Ultrasound 10/02/17 0000 Signed Impressions: Service Date/Time: Monday, October 02, 2017 21:03 - CONCLUSION: 1. No significant atherosclerotic disease or stenosis is present within either internal carotid artery. 2. There is antegrade flow in both vertebral arteries. Misael Singletary MD Brain MRI 10/02/17 0000 Signed Impressions: Service Date/Time: Monday, October 02, 2017 19:07 - CONCLUSION: 1. There are no findings to indicate recent ischemia. Overall, no acute finding is identified. 2. Moderate severity periventricular and subcortical white matter signal change bilaterally. This could represent chronic microvascular ischemic change and the severity is greater than typically seen in a patient this age. Misael Singletary MD Objective Remarks General: Obese female in no acute distress. Heart: Regular rate and rhythm. No murmur. Lungs: Clear to auscultation bilaterally. No wheezes, rales, or rhonchi. Breathing is nonlabored. Abdomen: Soft, nontender, nondistended. Extremities: No lower extremity edema. Psych: Alert and oriented. Skin: Warm and dry. Procedures None Urinary Catheter: No Vascular Central Line Catheter: No A/P Assessment and Plan 1. TIA: Head CT, MRI, carotid artery ultrasound negative for acute process. Appreciate neurology recommendations. Cardiology consulted for consideration of KIRAN. PT/OT. Continue aspirin, Plavix. 2. Diabetes mellitus, insulin-dependent: Monitor Accu-Cheks and cover with sliding scale insulin. A1c 7.2. 3. Urine drug screen positive for barbiturates: Patient has been counseled. 4. Hypertension: Blood pressure is well controlled. 5. Hyperlipidemia: Continue statin. 6. Chronic back pain: Patient sees Dr. Fong for pain management as outpatient. She is having a lot of back pain. Continue Lortab liquid as needed. 7. Acute kidney injury: Improving. 8. Hypothyroidism: Continue Synthroid. 9. DVT prophylaxis: Subcutaneous heparin. Discharge Planning Plan for discharge home when cleared by neurology. Craroll Alarcon MD Oct 04, 2017 08:06
[2017-10-04] MEDS ORDERED: ADVA100A INH (08:26)
[2017-10-04] MEDS: LEVOTHYROXINE SODIUM 100 MCG TAB PO SCH (08:51)
[2017-10-04] MEDS: CLOPIDOGREL 75 MG TAB PO SCH (09:35)
[2017-10-04] MEDS: GABAPENTIN 300 MG CAP PO SCH ×2 (09:35→20:33)
[2017-10-04] MEDS: SERTRALINE HCL 100 MG TAB PO SCH (09:36)
[2017-10-04] MEDS: SODIUM CHLORIDE 0.9% FLUSH 10 ML FLUSH IV FLUSH SCH ×2 (09:36→20:33)
[2017-10-04] MEDS: ASPIRIN 81 MG CHEW TAB PO SCH (09:36)
--- NOTE | 2017-10-04 12:10 | MB ---
cc: CARMELINA CHOU DATE OF CONSULTATION 10/04/2017 HISTORY OF PRESENT ILLNESS Ms. Angulo is a 56-year-old white female with a history of multiple TIAs, diabetes mellitus, hypertension, dyslipidemia and multiple sclerosis. She presented with occipital headache, left facial numbness, left arm and left leg weakness. She also had an episode of confusion and slurred speech. She has not had any chest pain or shortness of breath. PAST MEDICAL HISTORY 1. Multiple TIAs. 2. Diabetes mellitus. 3. Hypertension. 4. Dyslipidemia. 5. Multiple sclerosis. 6. Tonsillectomy. 7. Left ankle surgery. 8. Right knee arthroscopy. 9. History of atrial fibrillation MEDICATIONS 1. Lortab. 2. Zoloft. 3. Pravastatin. 4. Ropinirole. 5. Gabapentin. 6. Victoza. 7. Toujeo. 8. Potassium. 9. Levothyroxine. ALLERGIES 1. SULFA. 2. DIATRIZOATE MEGLUMINE. 3. GADOBENIC ACID. 4. GADODIAMIDE. 5. GADOTERIDOL. 6. HAZELNUT. 7. IODIXANOL. 8. IOHEXOL. 9. PROMETHAZINE. SOCIAL HISTORY The patient does not smoke. She does not drink alcohol. FAMILY HISTORY Positive for heart disease in her mother. REVIEW OF SYSTEMS Otherwise negative. PHYSICAL EXAMINATION VITAL SIGNS: Blood pressure 108/66, pulse 59 and regular. HEENT: Negative. NECK: 2+ carotid upstrokes. No bruits. LUNGS: Clear. HEART: Regular with no murmur, gallop or rub. ABDOMEN: Soft. No bruits. EXTREMITIES: Without edema. 2+ distal pulses. NEUROLOGIC: Grossly nonfocal. EKG EKG was reviewed and showed normal sinus rhythm with normal axis and interval, nonspecific T-wave changes. LABORATORY Hemoglobin 15.8. Potassium 4.0. Creatinine 1.1. CK and troponin normal. LDL 83, HDL 29. DIAGNOSIS 1. Recurrent TIA. 2. History of paroxysmal atrial fibrillation. 3. Hypertension. 4. Diabetes mellitus. 5. Dyslipidemia. 6. Renal insufficiency. DISPOSITION Ms. Angulo will be scheduled for a transesophageal echocardiogram to evaluate for cardiac source of emboli and patent foramen ovale. She gives a history of paroxysmal atrial fibrillation, although she is not on full anticoagulation. If this is confirmed, I would strongly recommend full anticoagulation to decrease the chance of further TIAs or strokes. I recommend to continue aggressive modification of her cardiac risk factors. MD ELIAZBETH Flaherty/ALBA /11:09 AM /11:39 AM
--- NOTE | 2017-10-04 20:09 | ECHRPT ---
Indication: CVA/TIA CONCLUSIONS The left ventricular systolic function is normal with an estimated ejection fraction in the range of 60-65%. Left ventricular diastolic function parameters are normal. BP: 106 / 62 HR: 63 Rhythm: Sinus MEASUREMENTS (Male / Female) Normal Values Technical Quality:Fair 2D ECHO LV Diastolic Diameter PLAX 4.6 cm 4.2 - 5.9 / 3.9 - 5.3 cm LV Systolic Diameter PLAX 2.9 cm IVS Diastolic Thickness 1.0 cm 0.6 - 1.0 / 0.6 - 0.9 cm LVPW Diastolic Thickness 1.0 cm 0.6 - 1.0 / 0.6 - 0.9 cm LV Relative Wall Thickness 0.4 RV Internal Dim ED PLAX 1.9 cm LVOT Diameter 1.7 cm LA Systolic Diameter LX 3.1 cm 3.0 - 4.0 / 2.7 - 3.8 cm LV Ejection Fraction MOD 4C 71.3 % LV Cardiac Index MOD 4C 2273.9 cm/minm LV Ejection Fraction 4C AL 73.0 % LV Cardiac Index 4C AL 2385.5 cm/minm M-MODE Aortic Root Diameter MM 2.5 cm AV Cusp Separation MM 1.5 cm DOPPLER AV Peak Velocity 137.0 cm/s AV Peak Gradient 7.5 mmHg LVOT Peak Velocity 125.0 cm/s LVOT Peak Gradient 6.3 mmHg AV Area Cont Eq pk 2.1 cm MV Area PHT 4.2 cm Mitral E Point Velocity 86.9 cm/s Mitral A Point Velocity 107.0 cm/s Mitral E to A Ratio 0.8 LV E' Lateral Velocity 10.2 cm/s Mitral E to LV E' Lateral Ratio 8.5 LV E' Septal Velocity 9.4 cm/s Mitral E to LV E' Septal Ratio 9.3 PV Peak Velocity 115.0 cm/s PV Peak Gradient 5.3 mmHg FINDINGS LEFT VENTRICLE The left ventricular systolic function is normal with an estimated ejection fraction in the range of 60-65%. Normal left ventricular size. Wall thickness is normal. No regional wall motion abnormalities are present. Left ventricular diastolic function parameters are normal. RIGHT VENTRICLE Normal right ventricular size and systolic function. LEFT ATRIUM The left atrial size is normal. RIGHT ATRIUM The right atrial size is normal. ATRIAL SEPTUM Normal atrial septal thickness without atrial level shunting by limited color doppler interrogation. AORTA The aortic root and proximal ascending aorta are normal in size on limited imaging. MITRAL VALVE Structurally normal mitral valve. Mitral annular calcification is present. No mitral valve stenosis. No mitral valve regurgitation. AORTIC VALVE Trileaflet aortic valve. Aortic valve sclerosis is present. TRICUSPID VALVE Structurally normal tricuspid valve. No tricuspid valve stenosis or regurgitation. PULMONARY VALVE The pulmonary valve is not well visualized. VESSELS The inferior vena cava is normal in size. PERICARDIUM Trace pericardial effussion. Jaya Kaur DO (Electronically Signed) Final Date:04 October 2017 20:08
[2017-10-04] MEDS: BUDESONIDE-FORMOTEROL 80/4.5 MCG INHALER INH SCH (20:33)
[2017-10-04] MEDS: PRAVASTATIN SOD 40 MG TAB PO SCH (20:33)
[2017-10-04] MEDS ORDERED: NON-FORMULARY DRUG (Fluticasone-Salmeterol Inh (Advair Diskus Inh) 1 PUFF) INH SCH (21:00)
[2017-10-04] MEDS ORDERED: HEPARIN-D5W 25,000 U/250 ML 250 ML IV PRN (21:15)
--- NOTE | 2017-10-04 21:21 | HHI.PR ---
Review/Management Diagnosis TIA history of atrial fibrillation--patient states two years ago , she developed palpitations and was evaluated by Dr Mccarthy of cardiology. She states she was found to have atrial fibrillation Plan will start iv heparin and stop asa and plavix due to history of atrial fibrillation and will obtain prior records of this. Diagnosis/Plan: Subjective Subjective Comments No acute events reported No further episodes of left sided weakness or numbness Active Medications Current Medications Medications (Trade) Dose Ordered Sig/Jose Route Start Time Stop Time Status Last Admin (NS Flush) 2 ml BID IV FLUSH 10/02/17 21:00 10/04/17 09:36 (NS Flush) 2 ml UNSCH PRN IV FLUSH 10/02/17 18:30 Sodium Chloride 1,000 ml @ 70 mls/hr [id number] IV 10/02/17 18:19 10/04/17 15:17 (Vasotec Inj) 1.25 mg Q4H PRN IV PUSH 10/02/17 18:30 (Aspirin Chew) 81 mg DAILY PO 10/03/17 09:00 10/04/17 09:36 (Pravachol) 40 mg HS PO 10/02/17 21:00 10/04/17 20:33 (Heparin Inj) 5,000 units Q12H SQ 10/02/17 18:30 10/04/17 18:50 (Neurontin) 600 mg BID PO 10/02/17 21:00 10/04/17 20:33 (Synthroid) 100 mcg DAILY PO 10/03/17 09:00 10/04/17 08:51 (Zoloft) 200 mg DAILY PO 10/03/17 09:00 10/04/17 09:36 (Hycet 325-7.5 Mg Liq) 15 ml Q6H PRN PO 10/02/17 21:00 10/02/17 20:58 (Plavix) 75 mg DAILY PO 10/03/17 20:45 10/04/17 09:35 (NovoLOG SUPPLEMENTAL SCALE) 1 ACHS SQ 10/03/17 21:00 10/04/17 20:34 (D50w (Vial) Inj) 50 ml UNSCH PRN IV PUSH 10/03/17 20:45 (Glucagon Inj) 1 mg UNSCH PRN OTHER 10/03/17 20:45 (Symbicort 80-4.5 Mcg Inh) 2 puff BID INH 10/04/17 21:00 10/04/17 20:33 Allergies Allergies Coded Allergies Sulfa (Sulfonamide Antibiotics) (Unverified Allergy, Severe, 06/13/17) diatrizoate meglumine (Unverified Allergy, Severe, 06/13/17) gadobenic acid (Unverified Allergy, Severe, 06/13/17) gadodiamide (Unverified Allergy, Severe, 06/13/17) gadoteridol (Unverified Allergy, Severe, 06/13/17) hazelnut (Unverified Allergy, Severe, THROAT SWELLING, 06/13/17) iodixanol (Unverified Allergy, Severe, 06/13/17) iohexol (Unverified Allergy, Severe, 06/13/17) promethazine (Unverified Allergy, Mild, 06/13/17) Exam I&O / VS Vital Signs Date Time Temp Pulse Resp B/P (MAP) Pulse Ox O2 Delivery O2 Flow Rate FiO2 10/04/17 20:57 97.8 70 16 118/65 (82) 98 10/04/17 15:00 77 10/04/17 11:40 97.9 69 21 118/69 (85) 96 10/04/17 08:27 97.5 69 19 108/66 (80) 96 10/04/17 07:06 67 10/04/17 05:57 21 10/04/17 04:17 98.0 72 18 121/64 (83) 96 10/04/17 04:05 73 10/04/17 01:39 98.4 78 18 133/65 (87) 98 10/04/17 00:03 67 10/03/17 21:25 98.1 70 14 113/60 (77) 94 Exam Comments alert, speech normal Cn intact MOTOR 5/5 BUE , no drift Objective Radiology Results MRI brain--no acute change seen. No infarction, no hemorrhage Micro and Labs Laboratory Tests Test 10/04/17 05:16 Mario Tobar MD PhD Oct 04, 2017 21:21
[2017-10-05] VITALS (9 sets, daily range): BP systolic 97–125; BP diastolic 57–76; PULSE 63–87; RESP 18–20; TEMP 97.7–98.2; O2SAT 94–98
[2017-10-05] MEDS: SODIUM CHLOR 0.9% 1000 ML INJ 1,000 ML IV SCH ×2 (03:31→17:49)
[2017-10-05] MEDS: HEPARIN SODIUM - SQ 10,000 UNITS/ML VIAL SQ SCH ×2 (06:30→18:38)
--- NOTE | 2017-10-05 08:17 | HHI.PR ---
Subjective Remarks In bed. No new motor or sensory deficit. Plan for KIRAN in the afternoon today. No change in vision, headaches. Denies any chest pain or shortness of breath. Objective Vitals Vital Signs Date Time Temp Pulse Resp B/P (MAP) Pulse Ox O2 Delivery O2 Flow Rate FiO2 10/05/17 04:00 98.2 87 18 107/69 (82) 97 10/05/17 00:00 97.9 64 18 122/65 (84) 98 10/04/17 20:57 97.8 70 16 118/65 (82) 98 10/04/17 15:00 77 10/04/17 11:40 97.9 69 21 118/69 (85) 96 10/04/17 08:27 97.5 69 19 108/66 (80) 96 I/O 10/04/17 10/04/17 10/04/17 10/05/17 10/05/17 10/05/17 07:00 15:00 23:00 07:00 15:00 23:00 # Voids 2 Result Diagram: 10/02/17 1657 10/03/17 1432 Imaging Last Impressions Head CT 10/02/17 0000 Signed Impressions: Service Date/Time: Monday, October 02, 2017 16:58 - CONCLUSION: Normal examination. Júnior Yates MD Chest X-Ray 10/02/17 0000 Signed Impressions: Service Date/Time: Monday, October 02, 2017 17:08 - CONCLUSION: Normal examination. Júnior Yates MD Carotid Artery Ultrasound 10/02/17 0000 Signed Impressions: Service Date/Time: Monday, October 02, 2017 21:03 - CONCLUSION: 1. No significant atherosclerotic disease or stenosis is present within either internal carotid artery. 2. There is antegrade flow in both vertebral arteries. Misael Singletary MD Brain MRI 10/02/17 0000 Signed Impressions: Service Date/Time: Monday, October 02, 2017 19:07 - CONCLUSION: 1. There are no findings to indicate recent ischemia. Overall, no acute finding is identified. 2. Moderate severity periventricular and subcortical white matter signal change bilaterally. This could represent chronic microvascular ischemic change and the severity is greater than typically seen in a patient this age. Misael Singletary MD Objective Remarks General: Obese female in no acute distress. Heart: Regular rate and rhythm. No murmur. Lungs: Clear to auscultation bilaterally. No wheezes, rales, or rhonchi. Breathing is nonlabored. Abdomen: Soft, nontender, nondistended. Extremities: No lower extremity edema. Psych: Alert and oriented. Skin: Warm and dry. Procedures None A/P Assessment and Plan TIA: Head CT, MRI, carotid artery ultrasound negative for acute process. Appreciate neurology recommendations. ECHO with normal EF 60%. Cardiology consulted plan for KIRAN 10/05. PT/OT/ST. Passed swallow evaluation continue aspirin, Plavix. Diabetes mellitus, insulin-dependent: Monitor Accu-Cheks and cover with sliding scale insulin. A1c 7.2. Urine drug screen positive for barbiturates: Patient has been counseled. Hypertension: Blood pressure is well controlled. Hyperlipidemia: Continue statin. Chronic back pain: Patient sees Dr. Fong for pain management as outpatient. She is having a lot of back pain. Continue Lortab liquid as needed. Acute kidney injury: Improving. Hypothyroidism: Continue Synthroid. DVT prophylaxis: Subcutaneous heparin. Discharge Planning Plan for discharge home when cleared by neurology. Plan for KIRAN Aubrie Xiong MD Oct 05, 2017 08:17
[2017-10-05 09:22] LABS: AUTOMATED NEUTROPHIL # 6.5 TH/MM3 (1.8-7.7); BASOPHIL # 0.1 TH/MM3 (0-0.2); BASOPHIL % 1.2 % (0.0-2.0); EOSINOPHIL # 0.5 TH/MM3 (0-0.4); EOSINOPHIL % 4.1 % (0.0-4.0); HEMATOCRIT 41.2 % (35.0-46.0); HEMOGLOBIN 14.3 GM/DL (11.6-15.3); LYMPH % 31.2 % (9.0-44.0); LYMPHOCYTE # 3.5 TH/MM3 (1.0-4.8); MEAN CELL VOLUME 88.9 FL (80.0-100.0); MEAN CORPUSCULAR HEMOGLOBIN 30.8 PG (27.0-34.0); MEAN CORPUSCULAR HGB CONC 34.7 % (32.0-36.0); MEAN PLATELET VOLUME 8.3 FL (7.0-11.0); MONO % 5.3 % (0.0-8.0); MONOCYTE # 0.6 TH/MM3 (0-0.9); NEUT % 58.2 % (16.0-70.0); PLATELET COUNT 182 TH/MM3 (150-450); RED BLOOD COUNT 4.63 MIL/MM3 (4.00-5.30); RED CELL DISTRIBUTION WIDTH 15.5 % (11.6-17.2); WHITE BLOOD COUNT 11.2 TH/MM3 (4.0-11.0)
[2017-10-05 09:24] LABS: PROTHROMBIN TIME - PATIENT 10.2 SEC (9.8-11.6)
[2017-10-05] MEDS: SERTRALINE HCL 100 MG TAB PO SCH (09:32)
[2017-10-05] MEDS: BUDESONIDE-FORMOTEROL 80/4.5 MCG INHALER INH SCH ×2 (09:32→20:45)
[2017-10-05] MEDS: SODIUM CHLORIDE 0.9% FLUSH 10 ML FLUSH IV FLUSH SCH ×2 (09:32→20:45)
[2017-10-05] MEDS: GABAPENTIN 300 MG CAP PO SCH ×2 (09:32→20:39)
[2017-10-05] MEDS: INSULIN ASPART SUPPLEMENTAL SCALE SQ SCH ×4 (09:33→20:46)
[2017-10-05] MEDS: ACETAMINOPHEN 325MG/HYDROcodone 7.5MG/15ML UDC PO PRN ×3 (09:34→22:50)
[2017-10-05] MEDS: LEVOTHYROXINE SODIUM 100 MCG TAB PO SCH (09:37)
[2017-10-05 09:47] LABS: BICARBONATE 26.2 MEQ/L (21.0-32.0); CALCIUM 8.9 MG/DL (8.5-10.1); CREATININE 0.91 MG/DL (0.50-1.00)
[2017-10-05] MEDS ORDERED: PROPOFOL 200 MG/20 ML AMP IV ONE (12:00)
--- NOTE | 2017-10-05 14:49 | PD.CARD.PN ---
Subjective Subjective Remarks No CP or SOB, symptoms improved Objective Medications Current Medications Medications (Trade) Dose Ordered Sig/Jose Route Start Time Stop Time Status Last Admin (NS Flush) 2 ml BID IV FLUSH 10/02/17 21:00 10/04/17 09:36 (NS Flush) 2 ml UNSCH PRN IV FLUSH 10/02/17 18:30 Sodium Chloride 1,000 ml @ 70 mls/hr [id number] IV 10/02/17 18:19 10/04/17 15:17 (Vasotec Inj) 1.25 mg Q4H PRN IV PUSH 10/02/17 18:30 (Pravachol) 40 mg HS PO 10/02/17 21:00 10/04/17 20:33 (Heparin Inj) 5,000 units Q12H SQ 10/02/17 18:30 10/04/17 18:50 (Neurontin) 600 mg BID PO 10/02/17 21:00 10/05/17 09:32 (Synthroid) 100 mcg DAILY PO 10/03/17 09:00 10/05/17 09:37 (Zoloft) 200 mg DAILY PO 10/03/17 09:00 10/05/17 09:32 (Hycet 325-7.5 Mg Liq) 15 ml Q6H PRN PO 10/02/17 21:00 10/05/17 09:34 (NovoLOG SUPPLEMENTAL SCALE) 1 ACHS SQ 10/03/17 21:00 10/04/17 20:34 (D50w (Vial) Inj) 50 ml UNSCH PRN IV PUSH 10/03/17 20:45 (Glucagon Inj) 1 mg UNSCH PRN OTHER 10/03/17 20:45 (Symbicort 80-4.5 Mcg Inh) 2 puff BID INH 10/04/17 21:00 10/05/17 09:32 Heparin Sodium/ Dextrose 250 ml @ 11 mls/hr TITRATE PRN IV 10/04/17 21:15 10/05/17 00:20 Vital Signs / I&O Vital Signs Date Time Temp Pulse Resp B/P (MAP) Pulse Ox O2 Delivery O2 Flow Rate FiO2 10/05/17 12:00 97.8 65 20 97/60 (72) 95 10/05/17 10:12 94 2/21/18 08:00 98.0 66 20 115/57 (76) 94 10/05/17 04:00 98.2 87 18 107/69 (82) 97 10/05/17 00:00 97.9 64 18 122/65 (84) 98 10/04/17 20:57 97.8 70 16 118/65 (82) 98 10/04/17 15:00 77 I/O 10/04/17 10/04/17 10/04/17 10/05/17 10/05/17 10/05/17 07:00 15:00 23:00 07:00 15:00 23:00 # Voids 2 Physical Exam GENERAL: In NAD SKIN: Warm and dry. HEAD: Normocephalic. EYES: No scleral icterus. No injection or drainage. NECK: Supple, trachea midline. No JVD or lymphadenopathy. CARDIOVASCULAR: Regular rate and rhythm without murmurs, gallops, or rubs. RESPIRATORY: Breath sounds equal bilaterally. No accessory muscle use. GASTROINTESTINAL: Abdomen soft, non-tender, nondistended. MUSCULOSKELETAL: No cyanosis, or edema. Laboratory Laboratory Tests Test 10/05/17 07:20 White Blood Count 11.2 TH/MM3 Red Blood Count 4.63 MIL/MM3 Hemoglobin 14.3 GM/DL Hematocrit 41.2 % Mean Corpuscular Volume 88.9 FL Mean Corpuscular Hemoglobin 30.8 PG Mean Corpuscular Hemoglobin Concent 34.7 % Red Cell Distribution Width 15.5 % Platelet Count 182 TH/MM3 Mean Platelet Volume 8.3 FL Neutrophils (%) (Auto) 58.2 % Lymphocytes (%) (Auto) 31.2 % Monocytes (%) (Auto) 5.3 % Eosinophils (%) (Auto) 4.1 % Basophils (%) (Auto) 1.2 % Neutrophils # (Auto) 6.5 TH/MM3 Lymphocytes # (Auto) 3.5 TH/MM3 Monocytes # (Auto) 0.6 TH/MM3 Eosinophils # (Auto) 0.5 TH/MM3 Basophils # (Auto) 0.1 TH/MM3 CBC Comment AUTO DIFF Differential Comment AUTO DIFF CONFIRMED Erythrocyte Sedimentation Rate 12 mm/hr Prothrombin Time 10.2 SEC Prothromb Time International Ratio 1.0 RATIO Activated Partial Thromboplast Time 26.4 SEC Blood Urea Nitrogen 17 MG/DL Creatinine 0.91 MG/DL Random Glucose 104 MG/DL Calcium Level 8.9 MG/DL Sodium Level 143 MEQ/L Potassium Level 3.8 MEQ/L Chloride Level 108 MEQ/L Carbon Dioxide Level 26.2 MEQ/L Anion Gap 9 MEQ/L Estimat Glomerular Filtration Rate 64 ML/MIN Assessment and Plan Problem List: (1) TIA (transient ischemic attack) ICD Codes: G45.9 - Transient cerebral ischemic attack, unspecified (2) HTN (hypertension) ICD Codes: I10 - Essential (primary) hypertension (3) DM (diabetes mellitus) ICD Codes: E11.9 - Type 2 diabetes mellitus without complications Status: Chronic (4) Renal insufficiency ICD Codes: N28.9 - Disorder of kidney and ureter, unspecified Status: Acute Assessment and Plan Continue current program. If h/o a fib is confirmed, recommend full anticoagulation. KIRAN today to evaluate for cardiac source of emboli. Albert Bonilla MD Oct 05, 2017 14:49
--- NOTE | 2017-10-05 18:41 | HHI.PR ---
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--if no atrial fibrillation is found, can stop eliquis and start antiplatelet therapy follow up on KIRAN Diagnosis/Plan: Subjective Subjective Comments No acute events reported No further left sided numbness or weakness Active Medications Current Medications Medications (Trade) Dose Ordered Sig/Jose Route Start Time Stop Time Status Last Admin (NS Flush) 2 ml BID IV FLUSH 10/02/17 21:00 10/04/17 09:36 (NS Flush) 2 ml UNSCH PRN IV FLUSH 10/02/17 18:30 Sodium Chloride 1,000 ml @ 70 mls/hr [id number] IV 10/02/17 18:19 10/04/17 15:17 (Vasotec Inj) 1.25 mg Q4H PRN IV PUSH 10/02/17 18:30 (Pravachol) 40 mg HS PO 10/02/17 21:00 10/04/17 20:33 (Heparin Inj) 5,000 units Q12H SQ 10/02/17 18:30 10/04/17 18:50 (Neurontin) 600 mg BID PO 10/02/17 21:00 10/05/17 09:32 (Synthroid) 100 mcg DAILY PO 10/03/17 09:00 10/05/17 09:37 (Zoloft) 200 mg DAILY PO 10/03/17 09:00 10/05/17 09:32 (Hycet 325-7.5 Mg Liq) 15 ml Q6H PRN PO 10/02/17 21:00 10/05/17 16:34 (NovoLOG SUPPLEMENTAL SCALE) 1 ACHS SQ 10/03/17 21:00 10/05/17 16:34 (D50w (Vial) Inj) 50 ml UNSCH PRN IV PUSH 10/03/17 20:45 (Glucagon Inj) 1 mg UNSCH PRN OTHER 10/03/17 20:45 (Symbicort 80-4.5 Mcg Inh) 2 puff BID INH 10/04/17 21:00 10/05/17 09:32 Heparin Sodium/ Dextrose 250 ml @ 11 mls/hr TITRATE PRN IV 10/04/17 21:15 10/05/17 00:20 Allergies Allergies Coded Allergies Sulfa (Sulfonamide Antibiotics) (Unverified Allergy, Severe, 06/13/17) diatrizoate meglumine (Unverified Allergy, Severe, 06/13/17) gadobenic acid (Unverified Allergy, Severe, 06/13/17) gadodiamide (Unverified Allergy, Severe, 06/13/17) gadoteridol (Unverified Allergy, Severe, 06/13/17) hazelnut (Unverified Allergy, Severe, THROAT SWELLING, 06/13/17) iodixanol (Unverified Allergy, Severe, 06/13/17) iohexol (Unverified Allergy, Severe, 06/13/17) promethazine (Unverified Allergy, Mild, 06/13/17) Exam I&O / VS 10/05/17 10/05/17 10/06/17 15:00 23:00 07:00 # Voids 5 # Bowel Movements 1 Vital Signs Date Time Temp Pulse Resp B/P (MAP) Pulse Ox O2 Delivery O2 Flow Rate FiO2 10/05/17 18:30 85 10/05/17 17:34 95 21 10/05/17 12:00 97.8 65 20 97/60 (72) 95 10/05/17 10:12 94 10/05/17 08:00 98.0 66 20 115/57 (76) 94 10/05/17 04:00 98.2 87 18 107/69 (82) 97 10/05/17 00:00 97.9 64 18 122/65 (84) 98 10/04/17 20:57 97.8 70 16 118/65 (82) 98 Exam Comments alert, speech normal Cn intact MOTOR 5/5 BUE , no drift Objective Micro and Labs Laboratory Tests Test 10/05/17 07:20 10/05/17 15:36 10/05/17 18:00 White Blood Count 11.2 Red Blood Count 4.63 Hemoglobin 14.3 Hematocrit 41.2 Mean Corpuscular Volume 88.9 Mean Corpuscular Hemoglobin 30.8 Mean Corpuscular Hemoglobin Concent 34.7 Red Cell Distribution Width 15.5 Platelet Count 182 Mean Platelet Volume 8.3 Neutrophils (%) (Auto) 58.2 Lymphocytes (%) (Auto) 31.2 Monocytes (%) (Auto) 5.3 Eosinophils (%) (Auto) 4.1 Basophils (%) (Auto) 1.2 Neutrophils # (Auto) 6.5 Lymphocytes # (Auto) 3.5 Monocytes # (Auto) 0.6 Eosinophils # (Auto) 0.5 Basophils # (Auto) 0.1 CBC Comment AUTO DIFF Differential Comment AUTO DIFF CONFIRMED Erythrocyte Sedimentation Rate 12 Prothrombin Time 10.2 Prothromb Time International Ratio 1.0 Activated Partial Thromboplast Time 26.4 21.7 Blood Urea Nitrogen 17 Creatinine 0.91 Random Glucose 104 Calcium Level 8.9 Sodium Level 143 Potassium Level 3.8 Chloride Level 108 Carbon Dioxide Level 26.2 Anion Gap 9 Estimat Glomerular Filtration Rate 64 Mario Tboar MD PhD Oct 05, 2017 18:41
[2017-10-05] MEDS: PRAVASTATIN SOD 40 MG TAB PO SCH (20:40)
[2017-10-05] MEDS: APIXABAN 5 MG TABLET PO SCH (20:45)
[2017-10-06] VITALS (8 sets, daily range): BP systolic 98–127; BP diastolic 57–74; PULSE 62–72; RESP 18; TEMP 97.3–98.2; O2SAT 94–96
[2017-10-06] MEDS: ACETAMINOPHEN 325MG/HYDROcodone 7.5MG/15ML UDC PO PRN ×2 (06:42→12:57)
[2017-10-06] MEDS: SODIUM CHLOR 0.9% 1000 ML INJ 1,000 ML IV SCH (08:07)
[2017-10-06] MEDS: APIXABAN 5 MG TABLET PO SCH (08:29)
[2017-10-06] MEDS: GABAPENTIN 300 MG CAP PO SCH (08:29)
[2017-10-06] MEDS: SODIUM CHLORIDE 0.9% FLUSH 10 ML FLUSH IV FLUSH SCH (08:30)
[2017-10-06] MEDS: LEVOTHYROXINE SODIUM 100 MCG TAB PO SCH (08:30)
[2017-10-06] MEDS: SERTRALINE HCL 100 MG TAB PO SCH (08:30)
[2017-10-06] MEDS: BUDESONIDE-FORMOTEROL 80/4.5 MCG INHALER INH SCH (08:32)
[2017-10-06] MEDS: INSULIN ASPART SUPPLEMENTAL SCALE SQ SCH ×3 (08:48→17:45)
[2017-10-06] MEDS ORDERED: PRAV40TA PO (11:12)
[2017-10-06] MEDS ORDERED: APIX5TAB PO (11:12)
--- NOTE | 2017-10-06 11:13 | HHI.DS ---
Discharge Summary Admission Date Oct 02, 2017 at 18:23 Discharge Date: Oct 06, 2017 Admitting Diagnosis ACUTE CVA (1) TIA (transient ischemic attack) ICD Code: G45.9 - Transient cerebral ischemic attack, unspecified (2) HTN (hypertension) ICD Code: I10 - Essential (primary) hypertension (3) DM (diabetes mellitus) ICD Code: E11.9 - Type 2 diabetes mellitus without complications Status: Chronic Procedures None Brief History - From Admission 56-year-old female with a past medical history significant for multiple TIAs, insulin-dependent diabetes mellitus, hypertension, hyperlipidemia and multiple sclerosis presents to the emergency department for evaluation of possible stroke. The patient reports that last night she had a stabbing headache in the occipital region. She reports she did not think anything of it and fell asleep however when she awoke this morning she felt as though she "did not feel right. " She reports left sided facial numbness and left arm and leg weakness. She states the weakness and numbness progressed throughout the day until 2:00 this afternoon when she had an episode of confusion and slurred speech while making tea. Her family called EMS and she was brought to the emergency department for further evaluation. CBC/BMP: 10/05/17 0720 10/05/17 0720 Significant Findings Laboratory Tests Test 10/03/17 14:32 10/04/17 05:16 10/05/17 07:20 10/05/17 15:36 Blood Urea Nitrogen 19 MG/DL (7-18) Creatinine 1.07 MG/DL (0.50-1.00) Random Glucose 151 MG/DL (74-106) Estimat Glomerular Filtration Rate 53 ML/MIN (>89) 64 ML/MIN (>89) White Blood Count 11.2 TH/MM3 (4.0-11.0) Eosinophils (%) (Auto) 4.1 % (0.0-4.0) Eosinophils # (Auto) 0.5 TH/MM3 (0-0.4) Chloride Level 108 MEQ/L (98-107) Activated Partial Thromboplast Time 21.7 SEC (24.3-30.1) Test 10/05/17 18:00 Imaging Last Impressions Head CT 10/02/17 0000 Signed Impressions: Service Date/Time: Monday, October 02, 2017 16:58 - CONCLUSION: Normal examination. Júnior Yates MD Chest X-Ray 10/02/17 0000 Signed Impressions: Service Date/Time: Monday, October 02, 2017 17:08 - CONCLUSION: Normal examination. Júnior Yates MD Carotid Artery Ultrasound 10/02/17 0000 Signed Impressions: Service Date/Time: Monday, October 02, 2017 21:03 - CONCLUSION: 1. No significant atherosclerotic disease or stenosis is present within either internal carotid artery. 2. There is antegrade flow in both vertebral arteries. Misael Singletary MD Brain MRI 10/02/17 0000 Signed Impressions: Service Date/Time: Monday, October 02, 2017 19:07 - CONCLUSION: 1. There are no findings to indicate recent ischemia. Overall, no acute finding is identified. 2. Moderate severity periventricular and subcortical white matter signal change bilaterally. This could represent chronic microvascular ischemic change and the severity is greater than typically seen in a patient this age. Misael Singletary MD PE at Discharge General: Obese female in no acute distress. Heart: Regular rate and rhythm. No murmur. Lungs: Clear to auscultation bilaterally. No wheezes, rales, or rhonchi. Breathing is nonlabored. Abdomen: Soft, nontender, nondistended. Extremities: No lower extremity edema. Psych: Alert and oriented. Skin: Warm and dry. Hospital Course TIA: Head CT, MRI, carotid artery ultrasound negative for acute process. Appreciate neurology recommendations. ECHO with normal EF 60%. Cardiology consulted plan for KIRAN 10/05. PT/OT/ST. Passed swallow evaluation, continue aspirin, Plavix. Continue Eliquis per neurology until he has Holter monitor for a long period of time and established no Afib. Diabetes mellitus, insulin-dependent: Monitor Accu-Cheks and cover with sliding scale insulin. A1c 7.2. Urine drug screen positive for barbiturates: Patient has been counseled. Hypertension: Blood pressure is well controlled. Hyperlipidemia: Continue statin. Chronic back pain: Patient sees Dr. Fong for pain management as outpatient. She is having a lot of back pain. Continue Lortab liquid as needed. Acute kidney injury: Improving. Hypothyroidism: Continue Synthroid. DVT prophylaxis: Subcutaneous heparin. Discharge Planning Had normal KIRAN, patient to continue Eliquis at discharge. To have a Holter monitor for longer period of time and if no A. fib might discontinue Eliquis as per neurology. Discharge home in stable condition. Follow-up with PCP and consultants as outpatient Pt Condition on Discharge: Stable Discharge Disposition: Discharge Home Discharge Time: > 30 minutes Discharge Instructions DIET: Follow Instructions for: Heart Healthy Diet, Diabetic Diet Speech Therapy-Diet Recommends: Regular Activities you can perform: Regular-No Restrictions Follow up Referrals: Appointment for Follow Up Cardiology - 1 Week Neurology - 2 Weeks PCP Follow-up - 2-3 Days PCP Follow-up New Orders: HOLTER MONITOR New Medications: Apixaban (Eliquis) 5 Mg Tab 5 MG PO BID for Blood Clot Prevention, #60 TAB Pravastatin (Pravachol) 40 Mg Tab 40 MG PO HS for Cholesterol Management, #30 TAB Continued Medications: Fluticasone-Salmeterol Inh (Advair Diskus Inh) 100-50 Mcg/Blist Aer 1 PUFF INH BID for Asthma Management, #1 INHALER 0 Refills Rinse mouth after use. Gabapentin (Gabapentin) 600 Mg Tab 600 MG PO BID, #60 TAB 0 Refills Hydrocodone-Acetaminophen Liq (Lortab Liq) 10-300 Mg/15 Ml Elix 10 ML PO Q6H PRN for PAIN, ML 0 Refills Insulin Glargine Inj (Toujeo Solostar Pen Inj) 300 Unit/Ml Pen 24 UNITS SQ BID for Blood Sugar Management, PEN 0 Refills Levothyroxine (Levothyroxine) 100 Mcg Tab 100 MCG PO DAILY for Thyroid, #30 TAB 0 Refills Liraglutide Inj (Victoza Inj) 18 Mg/3 Ml Pen 1.8 MG SQ DAILY, #1 PEN 0 Refills Potassium Chloride ER (Potassium Chloride ER) 20 Meq Tab 20 MEQ PO BID for Electrolyte Replacement, #60 TAB 0 Refills Ropinirole (Ropinirole) 1 Mg Tab 1 MG PO ONCE, #1 TAB 0 Refills Sertraline (Zoloft) 100 Mg Tab 200 MG PO DAILY, #30 TAB 0 Refills Discontinued Medications: Pravastatin (Pravastatin) 20 Mg Tab 20 MG PO DAILY for Cholesterol Management, #30 TAB 0 Refills Aubrie Xiong MD Oct 06, 2017 11:13
--- NOTE | 2017-10-06 13:11 | PD.CARD.PN ---
Subjective Subjective Remarks No CP or SOB, feels better Objective Medications Current Medications Medications (Trade) Dose Ordered Sig/Jose Route Start Time Stop Time Status Last Admin (NS Flush) 2 ml BID IV FLUSH 10/02/17 21:00 10/06/17 08:30 (NS Flush) 2 ml UNSCH PRN IV FLUSH 10/02/17 18:30 Sodium Chloride 1,000 ml @ 70 mls/hr [id number] IV 10/02/17 18:19 10/04/17 15:17 (Vasotec Inj) 1.25 mg Q4H PRN IV PUSH 10/02/17 18:30 (Pravachol) 40 mg HS PO 10/02/17 21:00 10/05/17 20:40 (Neurontin) 600 mg BID PO 10/02/17 21:00 10/06/17 08:29 (Synthroid) 100 mcg DAILY PO 10/03/17 09:00 10/06/17 08:30 (Zoloft) 200 mg DAILY PO 10/03/17 09:00 10/06/17 08:30 (Hycet 325-7.5 Mg Liq) 15 ml Q6H PRN PO 10/02/17 21:00 10/06/17 12:57 (NovoLOG SUPPLEMENTAL SCALE) 1 ACHS SQ 10/03/17 21:00 10/06/17 12:57 (D50w (Vial) Inj) 50 ml UNSCH PRN IV PUSH 10/03/17 20:45 (Glucagon Inj) 1 mg UNSCH PRN OTHER 10/03/17 20:45 (Symbicort 80-4.5 Mcg Inh) 2 puff BID INH 10/04/17 21:00 10/06/17 08:32 (Eliquis) 5 mg BID PO 10/05/17 21:00 10/06/17 08:29 Vital Signs / I&O Vital Signs Date Time Temp Pulse Resp B/P (MAP) Pulse Ox O2 Delivery O2 Flow Rate FiO2 10/06/17 12:00 97.7 64 18 105/57 (73) 95 10/06/17 10:03 96 21 10/06/17 09:38 63 10/06/17 08:43 97.8 65 18 110/71 (84) 94 10/06/17 04:00 98.2 70 18 127/58 (81) 96 10/06/17 00:14 72 10/06/17 00:00 97.3 66 18 123/74 (90) 96 10/05/17 20:00 97.7 68 18 125/76 (92) 95 10/05/17 20:00 63 10/05/17 18:40 67 10/05/17 18:30 85 10/05/17 17:34 95 21 I/O 10/05/17 10/05/17 10/05/17 10/06/17 10/06/17 10/06/17 07:00 15:00 23:00 07:00 15:00 23:00 Intake Total 60 ml Balance 60 ml Intake Oral 60 ml # Voids 5 3 # Bowel Movements 1 Physical Exam GENERAL: In NAD SKIN: Warm and dry. HEAD: Normocephalic. EYES: No scleral icterus. No injection or drainage. NECK: Supple, trachea midline. No JVD or lymphadenopathy. CARDIOVASCULAR: Regular rate and rhythm without murmurs, gallops, or rubs. RESPIRATORY: Breath sounds equal bilaterally. No accessory muscle use. GASTROINTESTINAL: Abdomen soft, non-tender, nondistended. MUSCULOSKELETAL: No cyanosis, or edema. Laboratory Laboratory Tests Test 10/05/17 15:36 10/05/17 18:00 Activated Partial Thromboplast Time 21.7 SEC Assessment and Plan Problem List: (1) TIA (transient ischemic attack) ICD Codes: G45.9 - Transient cerebral ischemic attack, unspecified (2) HTN (hypertension) ICD Codes: I10 - Essential (primary) hypertension (3) DM (diabetes mellitus) ICD Codes: E11.9 - Type 2 diabetes mellitus without complications Status: Chronic (4) Renal insufficiency ICD Codes: N28.9 - Disorder of kidney and ureter, unspecified Status: Acute Assessment and Plan KIRAN with no evidence of cardiac source of emboli or PFO. If h/o a fib is confirmed, she will need full anticoagulation. OK to discharge from cardiac standpoint. Will schedule outpt f/u. Albert Bonilla MD Oct 06, 2017 13:11
--- NOTE | 2017-10-06 14:52 | HHI.PR ---
Subjective Remarks Feels better. No new motor or sensory deficit. Denies pain. No headaches no change in vision. She is able to ambulate to the bathroom without any problems. No chest pain or shortness of breath. No palpitations. Patient says she has been under stress lately for both her parents are sick and her recently. Objective Vitals Vital Signs Date Time Temp Pulse Resp B/P (MAP) Pulse Ox O2 Delivery O2 Flow Rate FiO2 10/06/17 12:00 97.7 64 18 105/57 (73) 95 10/06/17 10:03 96 21 10/06/17 09:38 63 10/06/17 08:43 97.8 65 18 110/71 (84) 94 10/06/17 04:00 98.2 70 18 127/58 (81) 96 10/06/17 00:14 72 10/06/17 00:00 97.3 66 18 123/74 (90) 96 10/05/17 20:00 97.7 68 18 125/76 (92) 95 10/05/17 20:00 63 10/05/17 18:40 67 10/05/17 18:30 85 10/05/17 17:34 95 21 I/O 10/05/17 10/05/17 10/05/17 10/06/17 10/06/17 10/06/17 07:00 15:00 23:00 07:00 15:00 23:00 Intake Total 60 ml Balance 60 ml Intake Oral 60 ml # Voids 5 3 # Bowel Movements 1 Result Diagram: 10/05/17 0720 10/05/17 0720 Imaging Last Impressions Head CT 10/02/17 0000 Signed Impressions: Service Date/Time: Monday, October 02, 2017 16:58 - CONCLUSION: Normal examination. Júnior Yates MD Chest X-Ray 10/02/17 0000 Signed Impressions: Service Date/Time: Monday, October 02, 2017 17:08 - CONCLUSION: Normal examination. Júnior Yates MD Carotid Artery Ultrasound 10/02/17 0000 Signed Impressions: Service Date/Time: Monday, October 02, 2017 21:03 - CONCLUSION: 1. No significant atherosclerotic disease or stenosis is present within either internal carotid artery. 2. There is antegrade flow in both vertebral arteries. Misael Singletary MD Brain MRI 10/02/17 0000 Signed Impressions: Service Date/Time: Monday, October 02, 2017 19:07 - CONCLUSION: 1. There are no findings to indicate recent ischemia. Overall, no acute finding is identified. 2. Moderate severity periventricular and subcortical white matter signal change bilaterally. This could represent chronic microvascular ischemic change and the severity is greater than typically seen in a patient this age. Misael Singletary MD Objective Remarks General: Obese female in no acute distress. Heart: Regular rate and rhythm. No murmur. Lungs: Clear to auscultation bilaterally. No wheezes, rales, or rhonchi. Breathing is nonlabored. Abdomen: Soft, nontender, nondistended. Extremities: No lower extremity edema. Psych: Alert and oriented. Skin: Warm and dry. Procedures None A/P Assessment and Plan TIA: Head CT, MRI, carotid artery ultrasound negative for acute process. Appreciate neurology recommendations. ECHO with normal EF 60%. Cardiology consulted plan for KIRAN 10/05. PT/OT/ST. Passed swallow evaluation continue aspirin, Plavix. Diabetes mellitus, insulin-dependent: Monitor Accu-Cheks and cover with sliding scale insulin. A1c 7.2. Urine drug screen positive for barbiturates: Patient has been counseled. Hypertension: Blood pressure is well controlled. Hyperlipidemia: Continue statin. Chronic back pain: Patient sees Dr. Fong for pain management as outpatient. She is having a lot of back pain. Continue Lortab liquid as needed. Acute kidney injury: Improving. Hypothyroidism: Continue Synthroid. DVT prophylaxis: Subcutaneous heparin. Discharge Planning Plan for discharge home probably today when cleared by neurology. Had normal KIRAN , patient to continue Eliquis at discharge. To have a Holter monitor for longer period of time and if no A. fib might discontinue Eliquis as per neurology. Aubrie Xiong MD Oct 06, 2017 14:51
[2017-10-07 10:13] LABS: PROTEIN C ACTIVITY 116 % (70 - 150); PROTEIN S ACTIVITY 124 % (65 - 160)
[2017-10-07 12:58] LABS: CARDIOLIPIN IGG AB <9.4 GPL; CARDIOLIPIN IGM AB <9.4 MPL
[2017-10-07 15:30] LABS: ANA SCREEN POS (NEG)
[2017-10-07 17:52] LABS: DRVVT 1:1 MIX ND (CORRECTED); DRVVT CONFIRM ND (NEGATIVE); HEXAGONAL PHASE CONFIRM ND (NEGATIVE)
[2017-10-10 14:44] LABS: ANA PATTERN NUCLEOLAR
== END 2017-10-06 18:21 | disposition home or self-care (01) | DRG 69 ==
LOC: NEPE 16:43 → NEDA 18:23 → NEPFCDU 21:57 → N05A 10-04 22:21
PROVIDERS: ADMIT Hospitalist; ATTEND Hospitalist
PROC: B24BZZ4 Ultrasonography of Heart with Aorta, Transesophageal (ICD-10-PCS; principal; 2017-10-04)
DX: G45.9 Transient cerebral ischemic attack, unspecified (principal); N17.9 Acute kidney failure, unspecified; G35 Multiple sclerosis; I48.0 Paroxysmal atrial fibrillation; I10 Essential (primary) hypertension; J44.9 Chronic obstructive pulmonary disease, unspecified; E07.9 Disorder of thyroid, unspecified; R47.81 Slurred speech; R40.2410 Glasgow coma scale score 13-15, unspecified time; M19.90 Unspecified osteoarthritis, unspecified site; E11.9 Type 2 diabetes mellitus without complications; E78.00 Pure hypercholesterolemia, unspecified; G44.85 Primary stabbing headache; G89.29 Other chronic pain; M54.9 Dorsalgia, unspecified; E03.9 Hypothyroidism, unspecified; E66.9 Obesity, unspecified; Z68.32 Body mass index [BMI] 32.0-32.9, adult; Z87.11 Personal history of peptic ulcer disease; Z86.73 Personal history of transient ischemic attack (TIA), and cerebral infarction without residual deficits; Z79.01 Long term (current) use of anticoagulants; Z79.4 Long term (current) use of insulin; Z72.0 Tobacco use; I25.2 Old myocardial infarction
CPT/HCPCS: 70450; 70551; 71045; 80048; 80061; 80307; 81001; 81240; 81241; 82550; 82948; 83036; 84484; 85007; 85025; 85027; 85303; 85306; 85384; 85610; 85613; 85652; 85730; 86038; 86039; 86147; 86850; 86900; 86901; 90686; 90732; 93005; 93306; 93312; 93320; 93325; 93880; 96360; 96361; G8996-GN; G8997-GN; G8998-GN; J1644; J1815; J7030; P9612; Q2038